=== PATIENT | male | born 1960 | race Caucasian/White ===

== ENCOUNTER 2018-02-09 22:14 | Emergency (ER) | payer OTHER ==
[2018-02-09 23:15] LABS: Absolute Lymphocytes (CBC) 2.1 K/uL (0.7-4.9); Absolute Monocytes 0.6 K/uL (0.1-1.3); Absolute Neutrophil 5.4 K/uL (1.8-8.0); Basophils % 0.3 % (0-1.3); Hematocrit 44.5 % (39.6-49.0); Lymphocytes % 26.1 % (15.3-44.8); MCH 24.4 pg (27.0-35.0); MCV 72.6 fL (80-100); MPV 7.6 fL (7.6-11.3); Monocytes % 7.6 % (3.3-12.3); RBC Red Blood Cell Count 6.13 M/uL (4.33-5.43)
[2018-02-09 23:23] LABS: Protime INR 0.96
[2018-02-09 23:29] LABS: Bicarbonate 28 mEq/L (21-31); Glucose Level 285 mg/dL (65-120); Potassium 4.1 mEq/L (3.6-5.0); Sodium Level 128 mEq/L (135-145)
[2018-02-09] MEDS ORDERED: NA CHLORIDE 0.9% 1,000 ML ONE (23:30)
[2018-02-09] MEDS ORDERED: NA CHLORIDE 0.9% 500 ML ONE (23:30)
[2018-02-09 23:35] LABS: ALT/SGPT 20 IU/L (10-60); AST/SGOT 10 IU/L (10-42); Albumin 3.4 g/dL (3.2-5.5); Alkaline Phosphatase 114 IU/L (42-121); BUN Blood Urea Nitrogen 22 mg/dL (6-20); Bilirubin Direct 0.2 mg/dL (0-0.2); Bilirubin Total 1.4 mg/dL (0.3-1.2); Creatine Phosphokinase 55 IU/L (22-269); Magnesium 1.9 mg/dL (1.8-2.5)
[2018-02-09 23:38] LABS: CKMB Creatine Kinase MB 2.4 ng/ml (0.3-4.0)
[2018-02-10 00:16] LABS: A1c Component 1.34 mg/dL; Hemoglobin A1c 10.2 % (4-6.0)
[2018-02-10 01:42] LABS: Urine Blood TRACE (NEG); Urine Glucose 2+ (NEG); Urine Protein NEGATIVE (NEG)
[2018-02-10 01:45] LABS: Bicarbonate 22 mEq/L (21-31); Glucose Level 243 mg/dL (65-120); Potassium 3.4 mEq/L (3.6-5.0); Sodium Level 129 mEq/L (135-145)
[2018-02-10 01:46] LABS: BUN Blood Urea Nitrogen 20 mg/dL (6-20)
--- NOTE | 2018-02-10 02:12 | EDPHYS ---
Physician Documentation [facility] Name: Hector Guevara Age: 57 yrs Sex: Male : 1960 Arrival Date: 02/09/2018 Time: 22:15 Bed 8 Private MD: Aristides Navarro ED Physician Mario Woods HPI: 02/09 23:05 This 57 yrs old Male presents to ER via Ambulatory with complaints of pkl Decreased Appetite, Blood Pressure Problem. 23:05 said not eating well for 2 weeks. Feeling tired and loosing weight. Patient was pkl recently admitted to psychiatric facility for behavioral disorder. Historical: - Allergies: 22:35 Depakote; aa1 - Home Meds: 22:35 amantadine HCl 100 mg Oral tab 1 tab 2 times per day [Active]; metformin 500 mg Oral aa1 tab 1 tab 2 times per day [Active]; glipizide 5 mg Oral tab 1 tab once daily [Active]; lisinopril 10 mg Oral tab 1 tab once daily [Active]; Wellbutrin XL 150 mg Oral Tb24 1 tab once daily [Active]; Zofran (as hydrochloride) 4 mg Oral tab 1 tabs 3 times per day [Active]; aripiprazole 15 mg oral tab 1 tab once daily [Active]; aspirin 81 mg Oral TbEC 1 tab once daily [Active]; trazodone 150 mg Oral tab nightly [Active]; - PMHx: 22:35 Diabetes - NIDDM; Hypertension; TBI; aa1 - PSHx: 22:35 Cholecystectomy; eye sx; plate in face; aa1 - Immunization history:: Flu vaccine is not up to date. - Social history:: Smoking status: Patient/guardian denies using tobacco. ROS: 23:05 Eyes: Negative for injury, pain, redness, and discharge, ENT: Negative for injury, pkl pain, and discharge, Neck: Negative for injury, pain, and swelling, Cardiovascular: Negative for chest pain, palpitations, and edema, Respiratory: Negative for shortness of breath, cough, wheezing, and pleuritic chest pain, Abdomen/GI: Negative for abdominal pain, nausea, vomiting, diarrhea, and constipation, Back: Negative for injury and pain, : Negative for injury, bleeding, discharge, and swelling, MS/Extremity: Negative for injury and deformity, Skin: Negative for injury, rash, and discoloration, Neuro: Negative for headache, weakness, numbness, tingling, and seizure. 23:05 Psych: Positive for depression. Exam: 23:05 Head/Face: Normocephalic, atraumatic. Eyes: Pupils equal round and reactive to light, pkl extra-ocular motions intact. Lids and lashes normal. Conjunctiva and sclera are non-icteric and not injected. Cornea within normal limits. Periorbital areas with no swelling, redness, or edema. ENT: Nares patent. No nasal discharge, no septal abnormalities noted. Tympanic membranes are normal and external auditory canals are clear. Oropharynx with no redness, swelling, or masses, exudates, or evidence of obstruction, uvula midline. Mucous membranes moist. Neck: Trachea midline, no thyromegaly or masses palpated, and no cervical lymphadenopathy. Supple, full range of motion without nuchal rigidity, or vertebral point tenderness. No Meningismus. Chest/axilla: Normal chest wall appearance and motion. Nontender with no deformity. No lesions are appreciated. Cardiovascular: Regular rate and rhythm with a normal S1 and S2. No gallops, murmurs, or rubs. Normal PMI, no JVD. No pulse deficits. Respiratory: Lungs have equal breath sounds bilaterally, clear to auscultation and percussion. No rales, rhonchi or wheezes noted. No increased work of breathing, no retractions or nasal flaring. Abdomen/GI: Soft, non-tender, with normal bowel sounds. No distension or tympany. No guarding or rebound. No evidence of tenderness throughout. Back: No spinal tenderness. No costovertebral tenderness. Full range of motion. Skin: Warm, dry with normal turgor. Normal color with no rashes, no lesions, and no evidence of cellulitis. MS/ Extremity: Pulses equal, no cyanosis. Neurovascular intact. Full, normal range of motion. Neuro: Awake and alert, GCS 15, oriented to person, place, time, and situation. Cranial nerves II-XII grossly intact. Motor strength 5/5 in all extremities. Sensory grossly intact. Cerebellar exam normal. Normal gait. 23:05 Psych: Behavior/mood is cooperative, Affect is calm, Patient has no thoughts/intents to harm self or others. Delusions/hallucinations are not present. Vital Signs: 22:30 BP 174 / 93; Pulse 103; Resp 18; Temp 97.7(O); Pulse Ox 100% on R/A; Weight 63.5 kg; aa1 Height 5 ft. 7 in. (170.18 cm); Pain 0/10; 23:08 BP 155 / 100; Pulse 107; Resp 18; Pulse Ox 100% on R/A; Pain 0/10; aa1 23:58 BP 141 / 87; Pulse 107; Resp 18; Pulse Ox 98% on R/A; Pain 0/10; aa1 04 00:48 BP 161 / 90; Pulse 104; Resp 18; Pulse Ox 100% on R/A; Pain 0/10; aa1 02:04 BP 158 / 94; Pulse 106; Resp 18; Pulse Ox 100% on R/A; Pain 0/10; aa1 02/09 22:30 Body Mass Index 21.93 (63.50 kg, 170.18 cm) aa1 MDM: 02/09 22:41 Patient medically screened. pkl 02/10 02:08 Data reviewed: vital signs, nurses notes, lab test result(s), EKG, radiologic studies, pkl plain films. 02/09 22:48 Order name: Basic Metabolic Panel; Complete Time: 00:35 pkl 02/09 22:48 Order name: BNP; Complete Time: 00:35 pkl 02/09 22:48 Order name: CBC with Diff; Complete Time: 00:35 pkl 02/09 22:48 Order name: Ckmb; Complete Time: 00:35 pkl 02/09 22:48 Order name: CPK; Complete Time: 00:35 pkl 02/09 22:48 Order name: LFT's; Complete Time: 00:35 pkl 02/09 22:48 Order name: Magnesium; Complete Time: 00:35 pkl 02/09 22:48 Order name: PT-INR; Complete Time: 00:35 pkl 02/09 22:48 Order name: Ptt, Activated; Complete Time: 00:35 pkl 02/09 22:48 Order name: Troponin (emerg Dept Use Only); Complete Time: 00:35 pkl 02/09 22:48 Order name: TSH; Complete Time: 00:35 pkl 02/09 22:48 Order name: Hemoglobin A1c; Complete Time: 00:35 pkl 02/09 23:26 Order name: Urine Dipstick--Ancillary (enter results); Complete Time: 02:01 em1 02/10 00:49 Order name: Chem 7; Complete Time: 02:08 aa1 02/09 22:48 Order name: XRAY Chest (1 view) pkl 02/09 22:48 Order name: EKG; Complete Time: 22:49 pkl 02/09 22:48 Order name: Cardiac monitoring; Complete Time: 23:07 pkl 02/09 22:48 Order name: EKG - Nurse/Tech; Complete Time: 23:07 pkl 02/09 22:48 Order name: IV Saline Lock; Complete Time: 23:07 pkl 02/09 22:48 Order name: Labs collected and sent; Complete Time: 23:07 pkl 02/09 22:48 Order name: O2 Per Protocol; Complete Time: 23:07 pkl 02/09 22:48 Order name: O2 Sat Monitoring; Complete Time: 23:07 pkl 02/09 22:48 Order name: Urine Dipstick-Ancillary (obtain specimen); Complete Time: 23:25 pkl Administered Medications: 02/09 23:10 Drug: NS 0.9% 500 ml Route: IV; Rate: bolus; Site: right antecubital; aa1 23:30 Follow up: IV Status: Completed infusion aa1 23:10 Drug: NS 0.9% 1000 ml Route: IV; Rate: 100 ml/hr; Site: right antecubital; aa1 02/10 01:14 Follow up: IV Status: Completed infusion aa1 02:30 Drug: K-Dur 20 mEq Route: PO; aa1 02:30 Follow up: Response: No adverse reaction; Medication administered at discharge. aa1 Disposition: 02/10/18 02:11 Discharged to Home. Impression: Fatique. Decrease appetite. Uncontrolled diabetes. Hypertension. - Condition is Stable. - Prescriptions for Metformin 1,000 mg Oral Tablet - take 1 tablet by ORAL route every 12 hours with morning and evening meals; 60 tablet. Lisinopril 20 mg Oral Tablet - take 1 tablet by ORAL route once daily; 30 tablet. - Medication Reconciliation Form, Thank You Letter, Antibiotic Education, Prescription Opioid Use form. - Follow up: Aristides Navarro MD; When: 2 - 3 days; Reason: Re-evaluation by your physician. - Problem is new. - Symptoms have improved. Signatures: Dispatcher [employer] Lolly Ford RN RN aa1 Mario Woods MD MD pkl
--- NOTE | 2018-02-10 02:12 | ER ---
Nurse's Notes [facility] Name: Hector Guevara Age: 57 yrs Sex: Male : 1960 Arrival Date: 02/09/2018 Time: 22:15 Bed 8 Private MD: Aristides Navarro Diagnosis: Fatique. Decrease appetite. Uncontrolled diabetes. Hypertension Presentation: 02/09 22:26 Presenting complaint: Patient states: elevated BP x 2-3 weeks. Reports he was started aa1 on lisinopril a week ago while at a psychiatric facility but BP remains elevated. Denies pain. Transition of care: patient was not received from another setting of care. Onset of symptoms was January 2018. Care prior to arrival: None. 22:26 Method Of Arrival: Ambulatory aa1 22:26 Acuity: CLAUDINE 3 aa1 Historical: - Allergies: 22:35 Depakote; aa1 - Home Meds: 22:35 amantadine HCl 100 mg Oral tab 1 tab 2 times per day [Active]; metformin 500 mg Oral aa1 tab 1 tab 2 times per day [Active]; glipizide 5 mg Oral tab 1 tab once daily [Active]; lisinopril 10 mg Oral tab 1 tab once daily [Active]; Wellbutrin XL 150 mg Oral Tb24 1 tab once daily [Active]; Zofran (as hydrochloride) 4 mg Oral tab 1 tabs 3 times per day [Active]; aripiprazole 15 mg oral tab 1 tab once daily [Active]; aspirin 81 mg Oral TbEC 1 tab once daily [Active]; trazodone 150 mg Oral tab nightly [Active]; - PMHx: 22:35 Diabetes - NIDDM; Hypertension; TBI; aa1 - PSHx: 22:35 Cholecystectomy; eye sx; plate in face; aa1 - Immunization history:: Flu vaccine is not up to date. - Social history:: Smoking status: Patient/guardian denies using tobacco. Screenin:40 Abuse screen: Denies threats or abuse. Denies injuries from another. Nutritional aa1 screening: No deficits noted. Tuberculosis screening: No symptoms or risk factors identified. Fall Risk None identified. Assessment: 22:40 General: Appears in no apparent distress. comfortable, slender, Behavior is calm, aa1 cooperative, appropriate for age. Pain: Denies pain. Neuro: Level of Consciousness is awake, alert, obeys commands, Oriented to person, place, time, situation, Moves all extremities. Full function Gait is steady, Speech is normal. Cardiovascular: Heart tones S1 S2 present Rhythm is regular. Respiratory: Airway is patent Respiratory effort is even, unlabored, Respiratory pattern is regular, symmetrical. GI: Abdomen is flat, Patient currently denies abdominal pain, constipation, diarrhea, nausea, vomiting, Parent/caregiver reports the patient having anorexia. : No signs and/or symptoms were reported regarding the genitourinary system. EENT: No signs and/or symptoms were reported regarding the EENT system. Derm: Skin is intact, is healthy with good turgor, Skin is pink, warm \T\ dry. Musculoskeletal: Circulation, motion, and sensation intact. Capillary refill < 3 seconds. 23:58 Reassessment: Patient appears in no apparent distress at this time. Patient and/or aa1 family updated on plan of care and expected duration. Pain level reassessed. Patient is alert, oriented x 3, equal unlabored respirations, skin warm/dry/pink. Awaiting lab results. 02/10 00:48 Reassessment: Patient appears in no apparent distress at this time. Patient and/or aa1 family updated on plan of care and expected duration. Pain level reassessed. Patient is alert, oriented x 3, equal unlabored respirations, skin warm/dry/pink. Per MD orders, will administer remainder of NS infusion as a bolus and repeat chem 7 once complete. 01:14 Reassessment: Patient appears in no apparent distress at this time. Patient and/or aa1 family updated on plan of care and expected duration. Pain level reassessed. Patient is alert, oriented x 3, equal unlabored respirations, skin warm/dry/pink. NS bolus complete and repeat labs sent. 02:04 Reassessment: Patient appears in no apparent distress at this time. Patient and/or aa1 family updated on plan of care and expected duration. Pain level reassessed. Patient is alert, oriented x 3, equal unlabored respirations, skin warm/dry/pink. Awaiting repeat lab results. 02:29 Reassessment: Patient appears in no apparent distress at this time. Patient is alert, aa1 oriented x 3, equal unlabored respirations, skin warm/dry/pink. Discussed d/c \T\ f/u instruction with pt \T\ spouse; denies questions or concerns at this time Patient denies pain at this time. Patient states feeling better. Vital Signs: 02/09 22:30 BP 174 / 93; Pulse 103; Resp 18; Temp 97.7(O); Pulse Ox 100% on R/A; Weight 63.5 kg; aa1 Height 5 ft. 7 in. (170.18 cm); Pain 0/10; 23:08 BP 155 / 100; Pulse 107; Resp 18; Pulse Ox 100% on R/A; Pain 0/10; aa1 23:58 BP 141 / 87; Pulse 107; Resp 18; Pulse Ox 98% on R/A; Pain 0/10; aa1 02/10 00:48 BP 161 / 90; Pulse 104; Resp 18; Pulse Ox 100% on R/A; Pain 0/10; aa1 02:04 BP 158 / 94; Pulse 106; Resp 18; Pulse Ox 100% on R/A; Pain 0/10; aa1 02/09 22:30 Body Mass Index 21.93 (63.50 kg, 170.18 cm) aa1 ED Course: 02/09 22:15 Patient arrived in ED. es 22:16 Aristides Navarro MD is Private Physician. es 22:25 Lolly Melo RN is Primary Nurse. aa1 22:28 Triage completed. aa1 22:30 Arm band placed on right wrist. Patient placed in an exam room, on a stretcher. aa1 22:40 Patient has correct armband on for positive identification. Placed in gown. Bed in low aa1 position. Call light in reach. Pulse ox on. NIBP on. 22:41 Mario Woods MD is Attending Physician. pkl 22:56 X-ray completed. Portable x-ray completed in exam room. Patient tolerated procedure kc2 well. 22:56 XRAY Chest (1 view) In Process Unspecified. EDMS 23:00 Initial lab(s) drawn, by me, sent to lab. EKG done, by ED staff, reviewed by Mario weber MD. Inserted saline lock: 20 gauge in right antecubital area, using aseptic technique. Blood collected. 23:20 Urine collected: clean catch specimen, clear. aa1 02/10 01:14 Repeat lab(s) drawn. by me, sent to lab. aa1 02:10 Aristides Navarro MD is Referral Physician. pkl 02:29 No provider procedures requiring assistance completed. IV discontinued, intact, aa1 bleeding controlled, No redness/swelling at site. Pressure dressing applied. Administered Medications: 02/09 23:10 Drug: NS 0.9% 500 ml Route: IV; Rate: bolus; Site: right antecubital; aa1 23:30 Follow up: IV Status: Completed infusion aa1 23:10 Drug: NS 0.9% 1000 ml Route: IV; Rate: 100 ml/hr; Site: right antecubital; aa1 02/10 01:14 Follow up: IV Status: Completed infusion aa1 02:30 Drug: K-Dur 20 mEq Route: PO; aa1 02:30 Follow up: Response: No adverse reaction; Medication administered at discharge. aa1 Outcome: 02:11 Discharge ordered by MD. pkl 02:31 Discharged to home ambulatory, with significant other. aa1 02:31 Condition: good 02:31 Discharge instructions given to patient, significant other, Instructed on discharge instructions, follow up and referral plans. medication usage, Demonstrated understanding of instructions, follow-up care, medications, Prescriptions given X 2. 02:31 Patient left the ED. aa1 Signatures: Dispatcher [employer] Lolly Ford RN RN aa1 Mario Woods MD MD pkl Salyer, Edna es Carr, Kelsie kc2 Corrections: (The following items were deleted from the chart) 02/09 22:43 22:30 BP 147 / 93; Pulse 103bpm; Resp 18bpm; Pulse Ox 100% RA; Temp 97.7F Oral; 63.5 aa1 kg; Height 5 ft. 7 in.; BMI: 21.9; Pain 0/10; aa1
[2018-02-10] MEDS ORDERED: POTASSIUM CL SA 10 MEQ TAB PO ONE (02:42)
--- NOTE | 2018-02-10 08:37 | RAD REPORT ---
EXAM DESCRIPTION: Geraldine Single View02/09/2018 10:59 pm CLINICAL HISTORY: Hypertension COMPARISON: 2010 FINDINGS: The lungs appear clear of acute infiltrate. The heart is normal size IMPRESSION: No acute abnormalities displayed
--- NOTE | 2018-02-11 07:39 | EKG ---
Test Date: 2018-02-09 Test Time: 23:03:16 Machine Heel Builder: MEASUREMENT RESULTS: Intervals: Rate: 107 NE: 152 QRSD: 68 QT: 332 QTc: 443 [place]: P: 76 NE: 152 QRS: 45 T: 43 INTERPRETIVE STATEMENTS: Sinus tachycardia with occasional premature ventricular complexes Otherwise normal ECG Compared to ECG 05/16/2005 17:00:00 Ventricular premature complex(es) now present Sinus rhythm no longer present T-wave abnormality no longer present Electronically Signed On 02-11-18 07:35:21 CDT by Erick Yun
== END 2018-02-10 02:31 | disposition home or self-care (01) ==
LOC: ER 22:14
DX: R63.0 Anorexia (principal); E11.9 Type 2 diabetes mellitus without complications; I10 Essential (primary) hypertension; Z79.82 Long term (current) use of aspirin; Z88.5 Allergy status to narcotic agent
CPT/HCPCS: 36415; 71045; 80048 ×2; 80076; 81003; 82550; 82553; 83036; 83735; 83880; 84443; 84484; 85025; 85610; 85730; 93005; 96360; 96361; 99284; J7030